=== PATIENT | male | born 1930 | race Caucasian/White ===

== ENCOUNTER 2017-01-31 09:18 | Emergency (ER) | payer BC ==
[2017-01-31 09:22] VITALS: BMI 28.7
--- NOTE | 2017-01-31 09:32 | PDOC ---
History of Present Illness - General History Source: Patient, Family Exam Limitations: No Limitations - History of Present Illness Initial Comments: 01/31/17 10:14 The patient is an 86 year old male, with significant past medical history of Afib (s/p pacemaker, on Pradaxa), arthritis, HTN, and kidney stones, who presents to the emergency room complaining of 5 days of left sided back pain that radiates down the left leg to the left calf. He states that he woke up with the pain on Thursday, 5 days ago, and it has progressively worsened throughout the week. It was the worst yesterday. He reports some pain behind the left and right knees. He notes that his doctor just switched his medication from tramadol to meloxicam for his arthritis. He reports that his lower extremities swell often, but the swelling resolves with elevation. The patient s is in a detention and notes that he lifts her on and off the bed often. He states that this pain is different than the pain he has experienced with kidney stones in the past. Denies chest pain, SOB. Denies abdominal pain. Denies fever, chills, nausea, vomiting. PCP: Dr. Baxter <Luz Maria Bill - Last Filed: 01/31/17 11:31> <Divya Brown - Last Filed: 01/31/17 12:04> - General Chief Complaint: Pain Stated Complaint: LEG PAIN Time Seen by Provider: 01/31/17 09:31 Past History <Luz Maria Bill - Last Filed: 01/31/17 11:31> - Past Medical History Cardiac Disorders: Yes ("SLOW" AFIB) - Surgical History Appendectomy: Yes (HERNIA) Cardiac Surgery: Yes (PPMD, PACEMAKER) - Psycho/Social/Smoking Cessation Hx Anxiety: No Suicidal Ideation: No Smoking History: Never smoked Have you smoked in the past 12 months: No Information on smoking cessation initiated: No Hx Alcohol Use: No Drug/Substance Use Hx: No Substance Use Type: None Hx Substance Use Treatment: No <Divya Brown - Last Filed: 01/31/17 12:04> - Past Medical History Allergies/Adverse Reactions: Allergies Allergy/AdvReac Type Severity Reaction Status Date / Time No Known Drug Allergies Allergy Verified 01/31/17 09:22 Home Medications: Ambulatory Orders Enalapril Maleate [Vasotec -] 2.5 mg PO DAILY 08/12/13 Dabigatran Etexilate Mesylate [Pradaxa] 150 mg PO BID #1 08/16/13 Lidocaine 5% Patch [Lidoderm Patch -] 1 patch TP DAILY #7 patch 01/31/17 Meloxicam [Mobic] 15 mg PO PRN 01/31/17 Methylprednisolone [Medrol Dose Aidan] 4 mg PO ASDIR #21 tablet 01/31/17 Tamsulosin HCl [Flomax] 0.4 mg PO DAILY 01/31/17 Tramadol HCl 50 mg PO HS PRN #5 tablet MDD 50mg 01/31/17 Review of Systems - Review of Systems Able to Perform ROS?: Yes Comments:: 01/31/17 10:14 GENERAL/CONSTITUTIONAL: No fever or chills. No weakness. HEAD, EYES, EARS, NOSE AND THROAT: No change in vision. No ear pain or discharge. No sore throat. GASTROINTESTINAL: No nausea, vomiting, diarrhea or constipation. GENITOURINARY: No dysuria, frequency, or change in urination. CARDIOVASCULAR: No chest pain or shortness of breath. RESPIRATORY: No cough, wheezing, or hemoptysis. MUSCULOSKELETAL: +left sided back pain that radiates down the left leg and left calf. +Right calf pain. +pain behind the left knee. No neck pain. SKIN: No rash NEUROLOGIC: No headache, vertigo, loss of consciousness, or change in strength/ sensation. ENDOCRINE: No increased thirst. No abnormal weight change. HEMATOLOGIC/LYMPHATIC: No anemia, easy bleeding, or history of blood clots. ALLERGIC/IMMUNOLOGIC: No hives or skin allergy. <Luz Maria Bill - Last Filed: 01/31/17 11:31> *Physical Exam - Vital Signs Last Vital Signs Temp Pulse Resp BP Pulse Ox 98 F 62 18 149/74 98 01/31/17 09:52 01/31/17 09:19 01/31/17 09:19 01/31/17 09:19 01/31/17 09:19 - Physical Exam Comments: 01/31/17 10:14 Constitutional: Awake, alert, oriented. No acute distress. Head: Normocephalic. Atraumatic Eyes: PERRL. EOMI. Conjunctivae are not pale. ENT: Mucous membranes are moist and intact. Posterior pharynx without exudates or erythema. Uvula midline. Neck: Supple. Full ROM. No lymphadenopathy. Cardiovascular: Irregular rate. Regular rhythm. S1, S2 regular. Distal pulses are 2+ and symmetric. Pulmonary/Chest: No evidence of respiratory distress. Clear to auscultation bilaterally. No wheezing, rales or rhonchi. Abdominal: Soft and non-distended. There is no tenderness. No rebound, guarding or rigidity. No organomegaly. No palpable masses. Good bowel sounds. Back: No CVA tenderness. Musculoskeletal: +calf tenderness bilaterally. +left buttock and lateral hip tenderness. Trace edema in the lower extremities bilaterally. Muscle strength intact. Sensation intact. No cyanosis. No clubbing. Full range of motion in all extremities. Radial/pedal pulses are intact and 2+ bilaterally Skin: Skin is warm and dry. No petechiae. No purpura. Neurological: Alert and oriented to person, place, and time. Cranial nerves II -XII are grossly intact. Normal speech. Strength is grossly symmetric. No sensory deficits. Psychiatric: Good eye contact. Normal interaction, affect and behavior. <Luz Maria Bill - Last Filed: 01/31/17 11:31> - Vital Signs Last Vital Signs Temp Pulse Resp BP Pulse Ox 62 18 149/74 98 01/31/17 09:19 01/31/17 09:19 01/31/17 09:19 01/31/17 09:19 <Divya Brown - Last Filed: 01/31/17 12:04> ED Treatment Course - RADIOLOGY Radiograph Interpretation: 01/31/17 11:30 Lumbar Spine X ray As reviewed by Dr. Germain Guzmán Impression: extensive osteoarthritic changes increased since 05/29/2009 EXAM#: TYPE/EXAM: RESULT: [id number] US/DUPLEX VASCUL US-2LEGS HISTORY PROVIDED: Pain and swelling bilateral lower extremities. Real time and doppler evaluation of both lower extremities demonstrates the following: There is no evidence of deep venous thrombosis within the common, deep and superficial femoral veins, as well as the popliteal and posterior tibial veins. The greater saphenous veins are also patent. These veins are fully compressible, as well. IMPRESSION: No evidence of deep venous thrombosis. Reported By: Nima Rodriguez MD 01/31/17 1100 - Medications Given in the ED: ED Medications Discontinued Medications Generic Name Dose Route Start Last Admin Trade Name Alvina PRN Reason Stop Dose Admin Acetaminophen 975 mg 01/31/17 09:59 01/31/17 10:09 Tylenol - PO 01/31/17 10:00 975 mg ONCE ONE Administration <Luz Maria Bill - Last Filed: 01/31/17 11:31> Medical Decision Making - Medical Decision Making 01/31/17 11:31 Dr. Baxter was paged via office phone at 11:30am. Awaiting call back <Luz Maria Bill - Last Filed: 01/31/17 11:31> - Medical Decision Making 01/31/17 11:19 a/p: 86yo male with L buttock pain that radiates to L leg -no paresthesias -no muscle weakness -concern for poss sciatica vs lumbar radicular pain -will obtain xrays, ua -mild swelling to b/l LE, calf ttp b/l will obtain doppler 01/31/17 11:32 re-eval: pt ambulatory, but still c/o pain. will add steroids. call placed to PMD. 01/31/17 12:00 Pt stable for d/c to home. Discussed all reasons to return to the ED and need for follow up on Thursday with Dr. Baxter and DR. Phillips next week. Answered all questions. Family and pt agree with the plan. <Divya Brown - Last Filed: 01/31/17 12:04> *DC/Admit/Observation/Transfer - Attestations Scribe Attestion: 01/31/17 10:15 Documentation prepared by KALYANI Salazar, acting as medical technologist chemistry for Divya Brown DO. <Luz Maria Bill - Last Filed: 01/31/17 11:31> - Discharge Dispostion Admit: No - Attestations Physician Attestion: 01/31/17 11:21 I, Dr. Divya Brown DO, attest that this document has been prepared under my direction and personally reviewed by me in its entirety. I further attest, that it accurately reflects all work, treatment, procedures and medical decision -making performed by me. <Divya Brown - Last Filed: 01/31/17 12:04> Diagnosis at time of Disposition: Leg pain - Discharge Dispostion Disposition: HOME Condition at time of disposition: Stable - Prescriptions Prescriptions: Lidocaine 5% Patch [Lidoderm Patch -] 1 patch TP DAILY #7 patch Methylprednisolone [Medrol Dose Aidan] 4 mg PO ASDIR #21 tablet Tramadol HCl 50 mg PO HS PRN #5 tablet MDD 50mg PRN Reason: Moderate Pain - Referrals Referrals: Nathen Baxter MD [Primary Care Provider] - Rito Phillips MD [Staff Physician] - - Patient Instructions Printed Discharge Instructions: DI for Lumbar Radiculopathy Additional Instructions: Please follow up with your PMD and with Dr. Phillips next week for further eval of pain. Please return to the ED with any further concerns.
[2017-01-31] MEDS ORDERED: LIDOCAINE 5% TOPICAL PATCH TP ONE (09:59)
[2017-01-31] MEDS ORDERED: ACETAMINOPHEN 325 MG TABLET (FP) PO ONE (09:59)
[2017-01-31] MEDS ORDERED: ACETAMINOPHEN 325 MG TABLET (FP) ONE (10:03)
[2017-01-31 11:21] LABS: URINE APPEARANCE CLEAR; URINE BILIRUBIN NEGATIVE (NEGATIVE); URINE BLOOD NEGATIVE (NEGATIVE); URINE COLOR LTYELLOW; URINE GLUCOSE (UA) NEGATIVE (NEGATIVE); URINE KETONE NEGATIVE (NEGATIVE); URINE LEUK ESTERASE NEGATIVE (NEGATIVE); URINE NITRITE NEGATIVE (NEGATIVE); URINE PROTEIN NEGATIVE (NEGATIVE); URINE UROBILINOGEN NEGATIVE mg/dL (0.2-1.0)
[2017-01-31] MEDS ORDERED: predniSONE 20 MG TABLET (UD) PO ONE (11:29)
[2017-01-31] MEDS ORDERED: predniSONE 20 MG TABLET (UD) ONE (11:38)
[2017-01-31 12:08] VITALS: BP 145/78; PULSE 67; TEMP 98.2
[2017-01-31] MEDS ORDERED: LIDOCAINE PATCH REMOVAL MC SCH (22:00)
== END 2017-01-31 12:15 | disposition home or self-care (01) ==
LOC: JER 09:18
DX: M54.16 Radiculopathy, lumbar region (principal); I48.91 Unspecified atrial fibrillation; Z79.01 Long term (current) use of anticoagulants; Z95.0 Presence of cardiac pacemaker; M12.9 Arthropathy, unspecified; I10 Essential (primary) hypertension
CPT/HCPCS: 72100-TC; 73523-TC; 81003; 93970-TC; 99283-25

== ENCOUNTER 2021-11-14 14:30 | Inpatient (IN) | payer BC, OTHER ==
[2021-11-14] MEDS ORDERED: SODIUM CHLORIDE 1,000 ML IV SCH (15:00)
[2021-11-14 15:43] LABS: BASO % 0.4 % (0-2.0); EOS % 1.5 % (0-4.5); HEMATOCRIT 33.1 % (35.4-49); HEMOGLOBIN 11.1 GM/dL (11.7-16.9); LYMPH % 23.8 % (8-40); MCH 31.9 pg (25.7-33.7); MCHC 33.4 g/dl (32.0-35.9); MEAN CELL VOLUME 95.4 fl (80-96); MEAN PLT VOLUME 8.3 fl (7.5-11.1); MONO % 13.9 % (3.8-10.2); NEUT % 60.4 % (42.8-82.8); PLATELET COUNT 169 10^3/uL (134-434); RBC 3.47 M/mm3 (4.00-5.60); RDW 14.4 % (11.9-15.9); WHITE BLOOD COUNT 5.7 K/mm3 (4.0-10.0)
[2021-11-14 15:52] LABS: INR 1.19 (0.83-1.09); PROTHROMBIN TIME (PATIENT) 13.7 SEC (9.7-13.0)
[2021-11-14 16:06] LABS: CALCIUM 8.1 mg/dL (8.5-10.1)
[2021-11-14 16:07] LABS: ALBUMIN 3.8 g/dl (3.4-5.0)
[2021-11-14 16:09] LABS: BLOOD UREA NITROGEN 20.9 mg/dL (7-18)
[2021-11-14 16:11] LABS: TOT PROT 6.9 g/dl (6.4-8.2)
[2021-11-14 16:13] LABS: BILIRUBIN,TOTAL 0.6 mg/dL (0.2-1)
[2021-11-14] MEDS ORDERED: ACETAMINOPHEN 325 MG TABLET (FP) PO PRN (20:11)
[2021-11-14] MEDS ORDERED: POLYETHYLENE GLYCOL 3350 119 GM BTL PO PRN (20:11)
[2021-11-14 22:28] LABS: EPI CELLS 1 /uL (0-25.1); HYALINE CASTS 1 /uL (0-3.1); URINE APPEARANCE CLEAR; URINE BACTERIA 3664 /uL (0-1359); URINE BILIRUBIN NEGATIVE (NEGATIVE); URINE COLOR YELLOW; URINE GLUCOSE (UA) NEGATIVE (NEGATIVE); URINE KETONE NEGATIVE (NEGATIVE); URINE LEUK ESTERASE 2+ (NEGATIVE); URINE NITRITE POSITIVE (NEGATIVE); URINE PROTEIN NEGATIVE (NEGATIVE); URINE RBC 3 /uL (0-23.9); URINE UROBILINOGEN 0.2 mg/dL (0.2-1.0); URINE WBC 190 /uL (0-25.8)
[2021-11-14] MEDS ORDERED: ASPIRIN 81 MG CHEWABLE TABLETS ONE (23:20)
[2021-11-14] MEDS: DABIGATRAN ETEXILATE MESYLATE 150 MG CAPSULE PO SCH (23:24)
[2021-11-14] MEDS: ASPIRIN 81 MG CHEWABLE TABLETS PO SCH (23:24)
[2021-11-15 02:38] VITALS: BMI 29.1
[2021-11-15 07:50] LABS: BASO % 0.8 % (0-2.0); EOS % 2.9 % (0-4.5); HEMATOCRIT 32.2 % (35.4-49); HEMOGLOBIN 10.6 GM/dL (11.7-16.9); LYMPH % 24.6 % (8-40); MCH 31.6 pg (25.7-33.7); MEAN CELL VOLUME 95.5 fl (80-96); MEAN PLT VOLUME 8.6 fl (7.5-11.1); MONO % 11.4 % (3.8-10.2); NEUT % 60.3 % (42.8-82.8); PLATELET COUNT 164 10^3/uL (134-434); RBC 3.37 M/mm3 (4.00-5.60); RDW 14.4 % (11.9-15.9); WHITE BLOOD COUNT 4.6 K/mm3 (4.0-10.0)
[2021-11-15 08:09] LABS: CALCIUM 8.3 mg/dL (8.5-10.1)
[2021-11-15 08:10] LABS: BLOOD UREA NITROGEN 18.2 mg/dL (7-18); MAGNESIUM 2.2 mg/dL (1.8-2.4)
[2021-11-15 08:13] LABS: CREATININE 0.8 mg/dL (0.55-1.3)
[2021-11-15] MEDS ORDERED: TAMSULOSIN HCL 0.4 MG CAP PO SCH (10:00)
[2021-11-15] MEDS ORDERED: ENALAPRIL MALEATE 2.5 MG TABLET PO SCH (10:00)
[2021-11-15] MEDS: ASPIRIN 81 MG CHEWABLE TABLETS PO SCH (10:18)
[2021-11-15] MEDS: DABIGATRAN ETEXILATE MESYLATE 150 MG CAPSULE PO SCH (11:00)
[2021-11-15 14:38] VITALS: PULSE 74
[2021-11-15 18:58] VITALS: BP 138/62; TEMP 97.4
[2021-11-15] MEDS ORDERED: ATORVASTATIN CA 20 MG TABLET (FP) PO SCH (22:00)
== END 2021-11-15 19:04 | disposition home or self-care (01) | DRG 66 ==
LOC: JER 14:30 → JERBED 16:45 → J4W 11-15 01:56
PROVIDERS: ADMIT Internal Medicine; ATTEND Internal Medicine
DX: I63.89 Other cerebral infarction (principal); I25.10 Atherosclerotic heart disease of native coronary artery without angina pectoris; N40.0 Benign prostatic hyperplasia without lower urinary tract symptoms; I11.0 Hypertensive heart disease with heart failure; G51.0 Bell's palsy; I50.9 Heart failure, unspecified; I48.91 Unspecified atrial fibrillation; R47.1 Dysarthria and anarthria; R29.703 NIHSS score 3; Z95.0 Presence of cardiac pacemaker; N20.0 Calculus of kidney
CPT/HCPCS: 0241U-QW; 36415; 70450-TC; 71045-TC-FY; 80048; 80053; 80061; 81003; 82550; 82553; 82962; 83036; 83735; 84484; 85025; 85610; 85730; 86850; 86900; 86901; 93005; 93010; 93880-TC; 99285-25